=== PATIENT | male | born 1950 | race Caucasian/White ===

== ENCOUNTER 2017-03-04 09:24 | Day surgery (SDC) | payer MEDICARE, BC ==
[2017-03-04] MEDS ORDERED: Lactated Ringers 1,000 ML IV SCH (09:30)
[2017-03-04] MEDS ORDERED: fentaNYL 100 MCG/2 ML SDV ONE (10:12)
[2017-03-04] MEDS ORDERED: Midazolam 1 MG/ML 2 ML SDV ONE (10:12)
[2017-03-04] MEDS ORDERED: Propofol 200 MG/20 ML SDV ONE (10:12)
[2017-03-04] MEDS ORDERED: Ampicillin 2 GM in Sodium Chloride 0.9% 100 ML IV ONE (10:45)
--- NOTE | 2017-03-04 13:10 | OR ---
DATE OF PROCEDURE: 03/04/2017 PREOPERATIVE DIAGNOSIS: History of colon polyps. POSTOPERATIVE DIAGNOSES: 1. Small colon polyp, 15 cm from the anal verge. 2. History of colon polyps. PROCEDURE PERFORMED: Colonoscopy to the cecum with biopsy resection of small colon polyp, 15 cm from the anal verge. SURGEON: Jimmy Boyle MD ANESTHESIA: IV anesthesia with monitored anesthesia care. INDICATIONS: This 66-year-old white male is referred for a colonoscopy because of a history of adenomatous colon polyps. He says his last colonoscopic exam was done in 2011. I counseled him for the procedure, including risks and alternatives, and he gave his informed consent to proceed. DESCRIPTION OF PROCEDURE: The patient was placed in the left lateral decubitus position. IV anesthesia was administered by the Anesthesia Service. Time-out was held. A rectal exam was performed, which showed no masses. The flexible video Olympus colonoscope was introduced through his anus, up his rectum, and out his colon all the way to the cecum. Once the cecum was reached, the scope was slowly withdrawn, examining the mucosa throughout. No mucosal abnormalities were noted until we reached 15 cm from the anal verge. Here, we saw a small polyp, which was removed with a few bites of the biopsy forceps. The scope was brought back into the rectum, where it was retroflexed. The distal rectum appeared unremarkable. The scope was straightened and removed. He tolerated the procedure well. Jimmy Boyle MD /[id number] MTDD
[2017-03-04 13:16] VITALS: BP 136/71
== END 2017-03-04 13:20 | disposition home or self-care (01) ==
LOC: JP.SDS 09:24
PROVIDERS: ATTEND Surgery
DX: Z12.11 Encounter for screening for malignant neoplasm of colon (principal); D12.6 Benign neoplasm of colon, unspecified; I10 Essential (primary) hypertension; I25.10 Atherosclerotic heart disease of native coronary artery without angina pectoris; G47.33 Obstructive sleep apnea (adult) (pediatric); E66.9 Obesity, unspecified; Z86.010 Personal history of colon polyps; Z95.5 Presence of coronary angioplasty implant and graft; Z88.8 Allergy status to other drugs, medicaments and biological substances
CPT/HCPCS: 45380; 88305; J0290; J2250; J2704; J3010; J7030; J7120

== ENCOUNTER 2017-04-20 07:02 | Day surgery (SDC) | payer MEDICARE, BC ==
[2017-04-20] MEDS ORDERED: fentaNYL 250 MCG/5 ML SDV ONE (07:16)
[2017-04-20] MEDS ORDERED: Rocuronium 50 MG/5 ML Vial ONE (07:17)
[2017-04-20] MEDS ORDERED: Dexamethasone 4 MG/ML SDV ONE (07:17)
[2017-04-20] MEDS ORDERED: Neostigmine Methylsulfate 1 MG/ML 5 ML Syringe ONE (07:17)
[2017-04-20] MEDS ORDERED: Propofol 200 MG/20 ML SDV ONE (07:17)
[2017-04-20] MEDS ORDERED: Succinylcholine/Normal Saline 200 MG/10 ML Syringe ONE (07:17)
[2017-04-20] MEDS ORDERED: Ondansetron 4 MG/2 ML SDV ONE (07:17)
[2017-04-20] MEDS ORDERED: Acetaminophen 500 MG Tab PO ONE (07:30)
[2017-04-20] MEDS: Dextrose 5%-Lactated Ringers 1,000 ML IV SCH ×3 (07:42→23:36)
[2017-04-20] MEDS ORDERED: HYDROmorphone/Normal Saline 15 MG/30 ML PCA IV PRN (07:54)
[2017-04-20] MEDS ORDERED: Naloxone 0.4 MG/ML SDV IV PRN (08:01)
[2017-04-20] MEDS: Bupivacaine 0.5%/EPINEPHrine 1:200,000 50 ML MDV ONE ×3 (08:19→10:20)
[2017-04-20] MEDS ORDERED: Ropivacaine 52 ML, Dexamethasone 8 MG, EPINEPHrine 0.4 MG, Sodium Chloride 0.9% 25.6 ML NERVRT SCH ×4 (09:00)
[2017-04-20] MEDS ORDERED: Ketamine 500 MG/5 ML MDV IV SCH (09:00)
[2017-04-20] MEDS: cefOXitin 2 GM in Sodium Chloride 0.9% 50 ML IV ONE ×2 (09:17→14:56)
[2017-04-20] MEDS ORDERED: hydrOXYzine HCl 100 MG/2 ML SDV IM ONE (10:35)
[2017-04-20] MEDS ORDERED: Nitroglycerin 0.4 MG Tab.SL SL PRN (12:05)
[2017-04-20] MEDS ORDERED: Acetaminophen/HYDROcodone 325-5 MG Tab PO PRN (13:00)
[2017-04-20] MEDS ORDERED: Ondansetron 4 MG/2 ML SDV IVPUSH PRN (13:00)
[2017-04-20] MEDS ORDERED: amLODIPine 5 MG Tab PO SCH ×2 (14:00→21:00)
[2017-04-20] MEDS ORDERED: Pantoprazole 40 MG Vial IVPUSH SCH (14:00)
[2017-04-20] MEDS: cefOXitin 2 GM in Sodium Chloride 0.9% 50 ML IV SCH ×2 (16:49→22:17)
[2017-04-20] MEDS ORDERED: Losartan 50 MG Tab PO SCH (21:00)
[2017-04-20] MEDS ORDERED: Benzocaine/Cetylpyridinium/Menthol Lozenge MUCMEM PRN (21:39)
[2017-04-20] MEDS: Metoprolol Tartrate 50 MG Tab PO SCH (22:16)
[2017-04-20] MEDS: Acetaminophen 325 MG Tab PO PRN (22:38)
[2017-04-21] MEDS: cefOXitin 2 GM in Sodium Chloride 0.9% 50 ML IV SCH ×2 (04:34→10:36)
[2017-04-21 07:04] VITALS: BP 128/66
--- NOTE | 2017-04-21 08:24 | PCM.SURGPN ---
- General Info Date of Service: 04/21/17 Date of Surgery/Procedure: 04/20/17 POD#: 1 Post-Op Diagnosis: S/P cholecystectomy, awaiting pathology Admission Diagnosis/Problem: Chronic cholecystitis due to cholelithiasis with choledocholithiasis Functional Status: Reports: Pain Controlled, Tolerating Diet, Ambulating, Urinating Pain Score: 0 ("I am amazing, I have no pain") - Review of Systems General: Reports: No Symptoms HEENT: Reports: No Symptoms Pulmonary: Reports: No Symptoms Cardiovascular: Reports: No Symptoms Gastrointestinal: Reports: No Symptoms Genitourinary: Reports: No Symptoms Musculoskeletal: Reports: No Symptoms Skin: Reports: No Symptoms Neurological: Reports: No Symptoms Psychiatric: Reports: No Symptoms - Patient Data Vitals - Most Recent: Last Vital Signs Temp 36.8 C 04/21/17 07:02 Pulse 80 04/21/17 07:02 Resp 16 04/21/17 07:02 BP 128/66 04/21/17 07:02 Pulse Ox 97 04/21/17 07:02 Weight - Most Recent: 104.78 kg I&O - Last 24 Hours: Intake & Output 04/20/17 04/21/17 04/21/17 22:59 06:59 14:59 Intake Total 990 954 Output Total 910 520 400 Balance 80 434 -400 Lab Results Last 24 Hrs: Laboratory Results - last 24 hr 04/20/17 04/21/17 04/21/17 Range/Units 07:30 04:21 04:21 WBC 10.7 (4.5-11.0) K/uL RBC 4.55 (4.30-5.90) M/uL Hgb 14.6 (12.0-15.0) g/dL Hct 43.9 (40.0-54.0) % MCV 97 (80-98) fL MCH 32 H (27-31) pg MCHC 33 (32-36) % Plt Count 261 (150-400) K/uL Sodium 142 (140-148) mmol/L Potassium 4.1 (3.6-5.2) mmol/L Chloride 107 (100-108) mmol/L Carbon Dioxide 26 (21-32) mmol/L Anion Gap 9.1 (5.0-14.0) mmol/L BUN 17 (7-18) mg/dL Creatinine 1.1 (0.8-1.3) mg/dL Est Cr Clr Drug Dosing 68.21 mL/min Estimated GFR (MDRD) > 60 (>60) Glucose 116 H (74-106) mg/dL Calcium 8.5 (8.5-10.1) mg/dL Phosphorus 3.4 (2.5-4.9) mg/dL Magnesium 2.0 (1.8-2.4) mg/dL Total Bilirubin 1.0 0.6 (0.2-1.0) mg/dL AST 33 (15-37) U/L ALT 42 (12-78) U/L Alkaline Phosphatase 117 H 99 (46-116) U/L NT-Pro-B Natriuret Pep 79 (5-125) pg/mL Total Protein 6.5 (6.4-8.2) g/dL Albumin 3.7 (3.4-5.0) g/dL Globulin 2.8 (2.3-3.5) g/dL Albumin/Globulin Ratio 1.3 (1.2-2.2) Caio Results Last 24 Hrs: Microbiology 04/20/17 10:20 Gram Stain - Final Gallbladder Wound Culture - Preliminary NO GROWTH AFTER 1 DAY Med Orders - Current: Current Medications Acetaminophen (Tylenol) 650 mg PO Q4H PRN PRN Reason: Pain Last Admin: 04/20/17 22:38 Dose: 650 mg Hydrocodone Bitart/Acetaminophen ([place] 325-5 Mg) 1 - 2 tab PO Q4H PRN PRN Reason: PAIN Amlodipine Besylate (Norvasc) 5 mg PO BEDTIME [facility] Last Admin: 04/20/17 22:16 Dose: 5 mg Aspirin (Halfprin) 81 mg PO DAILY [facility] Benzocaine/Menthol (Cepacol Sore Throat) 1 lozenge MUCMEM ASDIRECTED PRN PRN Reason: Sore Throat Last Admin: 04/20/17 22:16 Dose: 1 otoniel Clopidogrel Bisulfate (Plavix) 75 mg PO DAILY [facility] Hydromorphone HCl (Dilaudid Logistics Solution Manager 15 Mg In Ns 30 Ml) 0 mg IV ASDIRECTED PRN; Protocol PRN Reason: Pain Dextrose/Lactated Ringer's (Dextrose 5%-Lactated Ringers) 1,000 mls @ 100 mls/ hr IV ASDIRECTED [facility] Last Admin: 04/20/17 23:36 Dose: 100 mls/hr Cefoxitin Sodium 2 gm/ Sodium (Chloride) 50 mls @ 100 mls/hr IV Q6H [facility] Last Admin: 04/21/17 04:34 Dose: 100 mls/hr Isosorbide Mononitrate (Imdur) 30 mg PO DAILY [facility] Losartan Potassium (Cozaar) 50 mg PO DAILY [facility] Metoprolol Tartrate (Lopressor) 100 mg PO BID [facility] Last Admin: 04/20/17 22:16 Dose: 100 mg Naloxone HCl (Narcan) 0.1 mg IV ASDIRECTED PRN PRN Reason: decreased respiratory rate Nitroglycerin (Nitrostat) 0.4 mg SL ASDIRECTED PRN PRN Reason: CHEST PAIN Ondansetron HCl (Zofran) 4 mg IVPUSH Q4H PRN PRN Reason: Nausea/Vomiting Pantoprazole Sodium (Protonix Iv) 40 mg IVPUSH Q24H [facility] Last Admin: 04/20/17 14:16 Dose: 40 mg Discontinued Medications Acetaminophen (Tylenol Extra Strength) 1,000 mg PO ONETIME ONE Stop: 04/20/17 07:31 Last Admin: 04/20/17 07:23 Dose: 1,000 mg Bupivacaine HCl/Epinephrine Bitart (Marcaine 0.5%/Epinephrine 1:200,000) Confirm Administered Dose 50 ml .ROUTE .STK-MED ONE Stop: 04/20/17 08:05 Last Admin: 04/20/17 10:20 Dose: 15 ml Ropivacaine 52 ml/Dexamethasone 8 mg/Epinephrine HCl 0.4 mg/ Sodium Chloride 25.6 ml 0 ml NERVRT ASDIRECTED [facility] Last Admin: 04/20/17 09:48 Dose: 80 syringe Dexamethasone (Dexamethasone) Confirm Administered Dose 4 mg .ROUTE .STK-MED ONE Stop: 04/20/17 07:18 Fentanyl (Sublimaze) Confirm Administered Dose 250 mcg .ROUTE .STK-MED ONE Stop: 04/20/17 07:17 Glycopyrrolate () Confirm Administered Dose 1 mg .ROUTE .STK-MED ONE Stop: 04/20/17 07:18 Hydroxyzine HCl (Vistaril) 100 mg IM ONETIME ONE Stop: 04/20/17 10:36 Last Admin: 04/20/17 10:44 Dose: 100 mg Cefoxitin Sodium 2 gm/ Sodium (Chloride) 50 mls @ 100 mls/hr IV ONETIME ONE Stop: 04/20/17 09:14 Last Admin: 04/20/17 14:56 Dose: Not Given Ketamine HCl (Ketalar) 36 mg IV ASDIRECTED [facility] Losartan Potassium (Cozaar) 50 mg PO BID [facility] Neostigmine Methylsulfate (Neostigmine) Confirm Administered Dose 5 mg .ROUTE .STK-MED ONE Stop: 04/20/17 07:18 Ondansetron HCl (Zofran) Confirm Administered Dose 4 mg .ROUTE .STK-MED ONE Stop: 04/20/17 07:18 Propofol (Diprivan 20 Ml) Confirm Administered Dose 200 mg .ROUTE .STK-MED ONE Stop: 04/20/17 07:18 Rocuronium [place] (Zemuron) Confirm Administered Dose 50 mg .ROUTE .STK-MED ONE Stop: 04/20/17 07:18 Succinylcholine Chloride (Succinylcholine In Ns Pf) Confirm Administered Dose 200 mg .ROUTE .STK-MED ONE Stop: 04/20/17 07:18 - Exam Wound/Incisions: Healing Well General: Alert, Oriented, Cooperative, No Acute Distress Lungs: Clear to Auscultation, Normal Respiratory Effort Cardiovascular: Regular Rate, Regular Rhythm GI/Abdominal Exam: Normal Bowel Sounds, Soft, Non-Tender, No Organomegaly, No Distention, No Abnormal Bruit Extremities: Non-Tender, No Pedal Edema Skin: Warm, Dry, Intact Neurological: No New Focal Deficit Psy/Mental Status: Alert, Normal Affect, Normal Mood - Problem List Review Problem List Initiated/Reviewed/Updated: Yes - My Orders Last 24 Hours: Active Orders 24 hr Category Date Time Status Admission Status [Patient Status] [ADT] Routine ADT 04/20/17 10:30 Active Ambulate [RC] QID Care 04/20/17 11:26 Active Communication Order [RC] ROUTINE Care 04/20/17 11:34 Active Drain Management [RC] ASDIRECTED Care 04/20/17 11:33 Active Incentive Breathing [RT Incentive Spirometry] [RC] Care 04/20/17 11:31 Active Q1HWA Intake and Output [RC] QSHIFT Care 04/20/17 11:32 Active Ready for Discharge [RC] PER UNIT ROUTINE Care 04/21/17 07:48 Active Turn, Cough, Deep Breathe [RC] Q1HWA Care 04/20/17 11:30 Active Up to Chair [RC] QID Care 04/20/17 11:26 Active Vital Signs [RC] Q4H Care 04/20/17 11:25 Active Advance Diet Instructions [DIET] Diet 04/20/17 Lunch Active CULTURE ANAEROBIC [RM] Routine Lab 04/20/17 10:20 Results CULTURE WOUND + SMEAR [RM] Routine Lab 04/20/17 10:20 Results Acetaminophen [Tylenol] Med 04/20/17 22:27 Active 650 mg PO Q4H PRN Acetaminophen/HYDROcodone [[place] 325-5 MG] Med 04/20/17 13:00 Active 1 - 2 tab PO Q4H PRN Aspirin [Halfprin] Med 04/21/17 09:00 Active 81 mg PO DAILY Benzocaine/Cetylpyrd/Menthol [Cepacol Sore Throat] Med 04/20/17 21:39 Active 1 lozenge MUCMEM ASDIRECTED PRN Clopidogrel [Plavix] Med 04/21/17 09:00 Active 75 mg PO DAILY Dextrose 5%-Lactated Ringers 1,000 ml Med 04/20/17 07:45 Active IV ASDIRECTED HYDROmorphone/Normal Saline [Dilaudid FINISHER HAND 15 MG in NS Med 04/20/17 07:54 Active 30 ML] See Protocol IV ASDIRECTED PRN Isosorbide Mononitrate [Imdur] Med 04/21/17 09:00 Active 30 mg PO DAILY Losartan [Cozaar] Med 04/21/17 09:00 Active 50 mg PO DAILY Metoprolol Tartrate [Lopressor] Med 04/20/17 21:00 Active 100 mg PO BID Naloxone [Narcan] Med 04/20/17 08:01 Active 0.1 mg IV ASDIRECTED PRN Nitroglycerin [Nitrostat] Med 04/20/17 12:05 Active 0.4 mg SL ASDIRECTED PRN Ondansetron [Zofran] Med 04/20/17 13:00 Active 4 mg IVPUSH Q4H PRN Pantoprazole [ProTONIX IV] Med 04/20/17 14:00 Active 40 mg IVPUSH Q24H amLODIPine [Norvasc] Med 04/20/17 21:00 Active 5 mg PO BEDTIME cefOXitin [Mefoxin] 2 gm Med 04/20/17 16:00 Active Sodium Chloride 0.9% [Normal Saline] 50 ml IV Q6H Drain Removal [OM.PC] Routine Oth 04/21/17 07:44 Ordered SCD [Sequential Compression Device] [OM.PC] Routine Oth 04/20/17 11:34 Ordered Sequential Compression Device [OM.PC] Routine Oth 04/20/17 07:15 Ordered Medication Orders Acetaminophen (Tylenol) 650 mg PO Q4H PRN PRN Reason: Pain Last Admin: 04/20/17 22:38 Dose: 650 mg Hydrocodone Bitart/Acetaminophen ([place] 325-5 Mg) 1 - 2 tab PO Q4H PRN PRN Reason: PAIN Amlodipine Besylate (Norvasc) 5 mg PO BEDTIME [facility] Last Admin: 04/20/17 22:16 Dose: 5 mg Aspirin (Halfprin) 81 mg PO DAILY [facility] Benzocaine/Menthol (Cepacol Sore Throat) 1 lozenge MUCMEM ASDIRECTED PRN PRN Reason: Sore Throat Last Admin: 04/20/17 22:16 Dose: 1 otoniel Clopidogrel Bisulfate (Plavix) 75 mg PO DAILY [facility] Hydromorphone HCl (Dilaudid Logistics Solution Manager 15 Mg In Ns 30 Ml) 0 mg IV ASDIRECTED PRN; Protocol PRN Reason: Pain Dextrose/Lactated Ringer's (Dextrose 5%-Lactated Ringers) 1,000 mls @ 100 mls/ hr IV ASDIRECTED [facility] Last Admin: 04/20/17 23:36 Dose: 100 mls/hr Infusion: 04/20/17 22:59 Dose: 100 mls/hr Admin: 04/20/17 12:59 Dose: 100 mls/hr Infusion: 04/20/17 12:59 Dose: 100 mls/hr Admin: 04/20/17 07:42 Dose: 100 mls/hr Cefoxitin Sodium 2 gm/ Sodium (Chloride) 50 mls @ 100 mls/hr IV Q6H [facility] Last Admin: 04/21/17 04:34 Dose: 100 mls/hr Admin: 04/20/17 22:17 Dose: 100 mls/hr Admin: 04/20/17 16:49 Dose: 100 mls/hr Isosorbide Mononitrate (Imdur) 30 mg PO DAILY [facility] Losartan Potassium (Cozaar) 50 mg PO DAILY [facility] Metoprolol Tartrate (Lopressor) 100 mg PO BID [facility] Last Admin: 04/20/17 22:16 Dose: 100 mg Naloxone HCl (Narcan) 0.1 mg IV ASDIRECTED PRN PRN Reason: decreased respiratory rate Nitroglycerin (Nitrostat) 0.4 mg SL ASDIRECTED PRN PRN Reason: CHEST PAIN Ondansetron HCl (Zofran) 4 mg IVPUSH Q4H PRN PRN Reason: Nausea/Vomiting Pantoprazole Sodium (Protonix Iv) 40 mg IVPUSH Q24H [facility] Last Admin: 04/20/17 14:16 Dose: 40 mg - Plan Plan (Free Text/Narrative):: Raul Tena is a 66 year old male with a history chronic cholecystitis with cholelithiasis and calcified gallbladder who is now POD #1 after cholecystectomy. This morning the patient states that he is in no pain at all. He has no complaints and would like to go home. He is tolerating oral diet. He is not taking any pain medications. He is passing stool and had good urine output. He is afebrile and his other vitals are stable. Plan is to discharge to home. # S/P Cholecystetomy - RX for tylenol PRN for pain This chart was scribed for Dr. Ludwig by: Mani Rowland, MS3 PG #[phone]
[2017-04-21] MEDS: Metoprolol Tartrate 50 MG Tab PO SCH (08:38)
[2017-04-21] MEDS: Acetaminophen 325 MG Tab PO PRN (08:56)
[2017-04-21] MEDS ORDERED: Losartan 50 MG Tab PO SCH (09:00)
[2017-04-21] MEDS ORDERED: Clopidogrel 75 MG Tab PO SCH (09:00)
[2017-04-21] MEDS ORDERED: Aspirin 81 MG Tab.EC PO SCH (09:00)
[2017-04-21] MEDS ORDERED: Isosorbide Mononitrate 30 MG Tab.ER PO SCH (09:00)
--- NOTE | 2017-04-28 08:36 | OR ---
DATE OF PROCEDURE: 04/20/2017 PREOPERATIVE DIAGNOSIS: Chronic cholecystitis with calcified gallbladder. POSTOPERATIVE DIAGNOSES: 1. Chronic cholecystitis with calcified gallbladder. 2. Umbilical hernia. 3. Pericholecystic abscess. OPERATIVE PROCEDURE: Diagnostic laparoscopy with: 1. Cholecystectomy (37137). 2. Umbilical hernia repair (87005). 3. Drainage of pericholecystic abscess (40245). ANESTHESIA: General. [place] REPAIR TECHNICIAN: Shawna Shay PA-C and ARAVIND [employer]. INDICATION FOR PROCEDURE: A 66-year-old male presenting with some episodes of recurrent biliary colic. He has had recently at least 2 episodes of predominence of biliary colic. Workup has included a CT scan, which showed a calcified gallbladder, along with some stones or sludge within the gallbladder. Given the presence of the calcified gallbladder, which is at a significant risk for harboring a gallbladder carcinoma, the plan is to proceed with a cholecystectomy. Potential risks including bleeding, infection, injury to underlying viscera, possible migration of stones in the common bile duct, requiring additional procedures for correction, as well as possibility that additional liver resection might be required, if malignancy is identified on final pathologic review of the gallbladder, were all gone over, along with the remote possibility of cardiopulmonary, septic, or hemorrhagic complications leading to , and he wishes to proceed. DETAILS OF PROCEDURE: The patient was taken to the operating room, and after general endotracheal anesthesia was induced, the abdomen was prepped and draped. A transverse epigastric incision was made. The peritoneal cavity entered under direct vision with an Optiview trocar and inflated to 15 mmHg pressure with CO2. Laparoscope was then reinserted. No underlying trocar insertion site injuries were seen. Following this, a 12 mm subumbilical trocar was placed, and upon peering down in this area, the patient was noted to have an umbilical hernia, and the trocar was intentionally placed through the center of that hernia to facilitate its subsequent repair. A single 5-mm right abdominal trocar was then also placed. The upper abdomen was examined. The patient was noted to have a thick-walled gallbladder with considerable edema as expected. This was retracted anteriorly and laterally. As one pulled the gallbladder anteriorly, an area of purulence posterior to the gallbladder was identified. This pericholecystic abscess was then drained and cultures obtained. At this point, the dissection continued around the gallbladder neck with Harmonic scalpel, down around the gallbladder neck/cystic duct junction. Once this area, along with the adjacent cystic artery, were both well identified, both structures were clipped 3 times proximally and once distally and divided. The gallbladder was then dissected off the gallbladder bed using Harmonic scalpel. The gallbladder, given the risk of carcinoma harbored within it, was then placed into a specimen bag, and the latter was then brought out through the epigastric trocar site without direct contamination of the gallbladder and its contents to the abdominal wall. The area of dissection was inspected. No bleeding or bile leaks were seen. A Jabari-Cowan drain was taken out through the right lateral trocar site and placed into the area of the gallbladder bed, and at that point, the camera was brought up to the epigastric site. The umbilical hernia was then closed with a series of 0 Vicryl sutures. These were initially placed with a transverse closure orientation, and after being placed, the remaining trocars were removed. The fascia at the epigastric site was closed with 0 Vicryl stitch, and upon decompression of the abdomen, the umbilical hernia repair sutures were tied, and the incisions were each closed with 4-0 Vicryl skin stitch. Dressing applied and the patient was taken to the recovery room in satisfactory condition. One additional adjunct used in this procedure was bilateral subcostal transversus abdominis plane blocks, and these were placed bilaterally with the confirmation of the adequate location of the needle tip visually from within and the standard solution being injected. Physician kitchen assistant, Shawna Shay, played an essential role in assisting in this case, helping to position the patient, retract structures as needed, as well as suturing and cutting sutures when indicated. Her presence improved the patient safety and decreased the operative time. Grayson Ludwig MD /[id number]
== END 2017-04-21 10:00 | disposition home or self-care (01) ==
LOC: JP.SDS 07:02 → JP.MS 10:30 → JP.SDS 04-21 10:00
PROVIDERS: ATTEND Surgery
DX: K81.1 Chronic cholecystitis (principal); K42.9 Umbilical hernia without obstruction or gangrene; E78.00 Pure hypercholesterolemia, unspecified; I25.10 Atherosclerotic heart disease of native coronary artery without angina pectoris; G47.33 Obstructive sleep apnea (adult) (pediatric); I10 Essential (primary) hypertension; M15.3 Secondary multiple arthritis; E66.9 Obesity, unspecified; N52.9 Male erectile dysfunction, unspecified; Z95.0 Presence of cardiac pacemaker; Z98.890 Other specified postprocedural states; Z99.89 Dependence on other enabling machines and devices; Z79.899 Other long term (current) drug therapy; Z79.02 Long term (current) use of antithrombotics/antiplatelets; Z79.82 Long term (current) use of aspirin; Z87.442 Personal history of urinary calculi; Z88.8 Allergy status to other drugs, medicaments and biological substances
CPT/HCPCS: 36415; 47562; 80053; 82247; 83735; 83880; 84075; 84100; 85027; 87070; 87075; 87205; 88304; A9270; C9113; J0171; J0694; J1100; J2405; J2704; J2795; J3010; J3410; J7042; J7050

== ENCOUNTER 2017-05-18 16:41 | Emergency (ER) | payer MEDICARE, BC ==
[2017-05-18] MEDS ORDERED: Sodium Chloride 0.9% 10 ML Syringe FLUSH PRN ×2 (17:31)
[2017-05-18] MEDS ORDERED: fentaNYL 100 MCG/2 ML SDV IVPUSH ONE (17:32)
[2017-05-18] MEDS ORDERED: Ondansetron 4 MG/2 ML SDV IVPUSH ONE (17:32)
--- NOTE | 2017-05-18 17:37 | EDM.PDOC ---
<OfficerElmer - Last Filed: 05/18/17 17:34> ED HPI GENERAL MEDICAL PROBLEM - General Chief Complaint: Abdominal Pain Stated Complaint: ABD PAIN Time Seen by Provider: 05/18/17 17:23 Source of Information: Reports: Patient, Family, RN Notes Reviewed History Limitations: Reports: No Limitations - History of Present Illness INITIAL COMMENTS - FREE TEXT/NARRATIVE: 66-year-old gentleman presents emergency department today with complaint of abdominal pain, he states the pain has progressively gotten worse over the last 2-3 days. He recently had his gallbladder removed about 6 weeks prior his surgical wounds have healed well he did have a left kidney stone with stenting process done about 2 weeks ago and has removed the splint himself on Thursday. After removal is states he developed some spasms which have subsided but the abdominal pain also started at that time as well denies any fevers does have nausea no shortness of breath chest pain Right Upper Abdominal Pain Score (Numeric/FACES): 7 - Related Data Allergies Allergy/AdvReac Type Severity Reaction Status Date / Time meperidine HCl [From Demerol] Allergy Unknown Hypertensio Verified 05/18/17 17: 03 n hydroxychloroquine sulfate AdvReac Confusion Verified 05/18/17 17:03 [From Plaquenil] lisinopril AdvReac Cough Verified 05/18/17 17:03 Home Meds: Home Meds Aspirin [Adult Low Dose Aspirin EC] 81 mg PO DAILY 03/22/13 [History] Isosorbide Mononitrate [Imdur] 30 mg PO DAILY 03/22/13 [History] Multivitamin [Daily Multiple Vitamin] 1 tab PO DAILY 03/22/13 [History] Losartan [Cozaar] 100 mg PO DAILY 03/24/13 [History] Clopidogrel [Plavix] 75 mg PO DAILY 05/23/14 [History] Nitroglycerin [Nitrostat] 0.4 mg SL ASDIRECTED PRN 05/23/14 [History] atorvaSTATin [Lipitor] 40 mg PO BEDTIME 11/20/16 [History] Metoprolol Tartrate [Lopressor] 100 mg PO BID 03/04/17 [History] amLODIPine Besylate [Norvasc] 5 mg PO BEDTIME 03/04/17 [History] Amoxicillin 2,000 mg PO ASDIRECTED 05/18/17 [History] Ciprofloxacin HCl [Cipro] 500 mg PO BID 05/18/17 [History] Oxybutynin [Oxybutynin ER] 1 tab PO DAILY 05/18/17 [History] Sennosides/Docusate Sodium [Sennosides-Docusate Sodium] 1 each PO ASDIRECTED [History] Tamsulosin HCl [Flomax] 0.4 mg PO DAILY 05/18/17 [History] oxyCODONE 1 tab PO ASDIRECTED 05/18/17 [History] Past Medical History HEENT History: Reports: Other (See Below) Other HEENT History: skesis Cardiovascular History: Reports: CAD, Heart Murmur, High Cholesterol, Stents Respiratory History: Reports: Intubation, Previous, Pneumonia, Recurrent, Sleep Apnea Gastrointestinal History: Reports: Cholelithiasis, Colon Polyp Genitourinary History: Reports: Renal Calculus Other Genitourinary History: LITHROTRIPSY Musculoskeletal History: Reports: Arthritis, Fracture, Other (See Below) Other Musculoskeletal History: R hip pain Endocrine/Metabolic History: Reports: Obesity/BMI 30+ Hematologic History: Reports: Blood Transfusion(s) - Infectious Disease History Infectious Disease History: Reports: Other (See Below) Other Infectious Disease History: R HIP STAFF INFECTION 2006 - Past Surgical History HEENT Surgical History: Reports: Cataract Surgery Cardiovascular Surgical History: Reports: Coronary Artery Stent Respiratory Surgical History: Reports: None GI Surgical History: Reports: Colonoscopy, Polypectomy Male Surgical History: Reports: Lithotripsy (ESWL), Vasectomy Endocrine Surgical History: Reports: None Musculoskeletal Surgical History: Reports: Arthroscopic Procedure, Hip Replacement, Shoulder Surgery, Other (See Below) Other Musculoskeletal Surgeries/Procedures:: finger surgery Social & Family History - Family History Family Medical History: Noncontributory Cardiac: Reports: Heart Failure, Heart Valve Replacement, [place] Musculoskeletal: Reports: Arthritis Endocrine/Metabolic: Reports: Diabetes, type II, Hypothyroidism - Tobacco Use Smoking Status *Q: Unknown Ever Smoked - Caffeine Use Caffeine Use: Reports: Coffee - Alcohol Use Days Per Week of Alcohol Use: 0 - Recreational Drug Use Recreational Drug Use: No ED ROS GENERAL - Review of Systems Review Of Systems: See Below Constitutional: Reports: No Symptoms HEENT: Reports: No Symptoms Respiratory: Reports: No Symptoms Cardiovascular: Reports: No Symptoms GI/Abdominal: Reports: Abdominal Pain, Flatus, Nausea. Denies: Constipation, Diarrhea, Vomiting : Reports: No Symptoms Musculoskeletal: Reports: No Symptoms Skin: Reports: No Symptoms Neurological: Reports: No Symptoms ED EXAM, GI/ABD - Physical Exam Exam: See Below Text/Narrative:: General: Male, not in any distress, alert and oriented x3 HEENT: head is atraumatic normocephalic, eyes pupils equal round reactive to light, sclera clear no conjunctivitis appreciated. Ears tympanic membranes clear and gill landmarks and light reflex are present bilaterally canals are clear. Nose no septal deviation, nares are clear, no blood present. Mouth mucosa is moist and pink no erythema or exudate noted in soft palate, tongue is midline uvula is midline, dentition is intact. Neck: Supple no thyromegaly no tracheal deviation. Nodes: Cervical nodes subclavicular nodes nontender no palpable lymphadenopathy noted. Lungs: clear to auscultation bilaterally with symmetrical respirations, no adventitious noise appreciated. CV: Regular rate and rhythm S1 and S2 appreciated no murmurs rubs or gallops noted. Abdomen: Soft, tender epigastric region, no palpable masses or organomegaly appreciated, no distention no guarding bowel sounds are present, [ Neuro: Cranial nerves II through XII grossly intact Skin: Warm and dry, intact Extremities: No lower extremity edema appreciated, Course - Vital Signs Last Recorded V/S: Last Vital Signs Temp 35.1 C L 05/18/17 17:02 Pulse 63 05/18/17 18:52 Resp 12 05/18/17 18:52 BP 135/74 05/18/17 18:52 Pulse Ox 94 L 05/18/17 18:52 - Orders/Labs/Meds Orders: Active Orders 24 hr Category Date Time Status Peripheral IV Care [RC] . DIRECTED Care 05/18/17 17:32 Active Sodium Chloride 0.9% [Saline Flush] Med 05/18/17 17:31 Active 10 ml FLUSH ASDIRECTED PRN Sodium Chloride 0.9% [Saline Flush] Med 05/18/17 17:31 Active 10 ml FLUSH ASDIRECTED PRN Peripheral IV Insertion Adult [OM.PC] Urgent Oth 05/18/17 17:31 Ordered Medication Orders Sodium Chloride (Saline Flush) 10 ml FLUSH ASDIRECTED PRN PRN Reason: Keep Vein Open Last Admin: 05/18/17 17:47 Dose: 10 ml Sodium Chloride (Saline Flush) 10 ml FLUSH ASDIRECTED PRN PRN Reason: Keep Vein Open Labs: Laboratory Tests 05/18/17 05/18/17 05/18/17 Range/Units 17:04 17:43 17:43 WBC 5.6 (4.5-11.0) K/uL RBC 4.84 (4.30-5.90) M/uL Hgb 15.7 H (12.0-15.0) g/dL Hct 45.6 (40.0-54.0) % MCV 94 (80-98) fL MCH 32 H (27-31) pg MCHC 34 (32-36) % Plt Count 262 (150-400) K/uL Neut % (Auto) 67 H (36-66) % Lymph % (Auto) 18 L (24-44) % [place] % (Auto) 12 H (2-6) % Eos % (Auto) 3 (2-4) % Baso % (Auto) 1 (0-1) % Sodium 143 (140-148) mmol/L Potassium 4.0 (3.6-5.2) mmol/L Chloride 107 (100-108) mmol/L Carbon Dioxide 27 (21-32) mmol/L Anion Gap 8.8 (5.0-14.0) mmol/L BUN 15 (7-18) mg/dL Creatinine 1.0 (0.8-1.3) mg/dL Est Cr Clr Drug Dosing 75.03 mL/min Estimated GFR (MDRD) > 60 (>60) Glucose 124 H (74-106) mg/dL Lactic Acid (0.4-2.0) mmol/L Calcium 8.8 (8.5-10.1) mg/dL Total Bilirubin 3.7 H D (0.2-1.0) mg/dL AST 515 H D (15-37) U/L ALT 615 H (12-78) U/L Alkaline Phosphatase 264 H D (46-116) U/L Troponin I < 0.017 (0.000-0.056) ng/mL Total Protein 6.8 (6.4-8.2) g/dL Albumin 3.7 (3.4-5.0) g/dL Globulin 3.1 (2.3-3.5) g/dL Albumin/Globulin Ratio 1.2 (1.2-2.2) Lipase 100 (73-393) U/L Urine Color Brown Urine Appearance Cloudy Urine pH 5.0 (4.5-8.0) Ur Specific [place] 1.025 (1.008-1.030) Urine Protein 100 H (NEGATIVE) mg/dL Urine Glucose (UA) Normal (NEGATIVE) mg/dL Urine Ketones Negative (NEGATIVE) mg/dL Urine Occult Blood Large (NEGATIVE) Urine Nitrite Negative (NEGAITVE) Urine Bilirubin Small (NEGATIVE) Urine Urobilinogen 1 (NORMAL) mg/dL Ur Leukocyte Esterase Negative (NEGATIVE) Urine RBC Packed H (0-5) Urine WBC Not seen (0-5) Ur Epithelial Cells Not seen Amorphous Sediment Not seen Urine Bacteria Few Urine Mucus Not seen 05/18/17 Range/Units 17:43 WBC (4.5-11.0) K/uL RBC (4.30-5.90) M/uL Hgb (12.0-15.0) g/dL Hct (40.0-54.0) % MCV (80-98) fL MCH (27-31) pg MCHC (32-36) % Plt Count (150-400) K/uL Neut % (Auto) (36-66) % Lymph % (Auto) (24-44) % [place] % (Auto) (2-6) % Eos % (Auto) (2-4) % Baso % (Auto) (0-1) % Sodium (140-148) mmol/L Potassium (3.6-5.2) mmol/L Chloride (100-108) mmol/L Carbon Dioxide (21-32) mmol/L Anion Gap (5.0-14.0) mmol/L BUN (7-18) mg/dL Creatinine (0.8-1.3) mg/dL Est Cr Clr Drug Dosing mL/min Estimated GFR (MDRD) (>60) Glucose (74-106) mg/dL Lactic Acid 1.5 (0.4-2.0) mmol/L Calcium (8.5-10.1) mg/dL Total Bilirubin (0.2-1.0) mg/dL AST (15-37) U/L ALT (12-78) U/L Alkaline Phosphatase (46-116) U/L Troponin I (0.000-0.056) ng/mL Total Protein (6.4-8.2) g/dL Albumin (3.4-5.0) g/dL Globulin (2.3-3.5) g/dL Albumin/Globulin Ratio (1.2-2.2) Lipase (73-393) U/L Urine Color Urine Appearance Urine pH (4.5-8.0) Ur Specific [place] (1.008-1.030) Urine Protein (NEGATIVE) mg/dL Urine Glucose (UA) (NEGATIVE) mg/dL Urine Ketones (NEGATIVE) mg/dL Urine Occult Blood (NEGATIVE) Urine Nitrite (NEGAITVE) Urine Bilirubin (NEGATIVE) Urine Urobilinogen (NORMAL) mg/dL Ur Leukocyte Esterase (NEGATIVE) Urine RBC (0-5) Urine WBC (0-5) Ur Epithelial Cells Amorphous Sediment Urine Bacteria Urine Mucus Meds: Medications Generic Name Dose Route Start Last Admin Trade Name Freq PRN Reason Stop Dose Admin Sodium Chloride 10 ml 05/18/17 17:31 05/18/17 17:47 Saline Flush FLUSH 10 ml ASDIRECTED PRN Administration Keep Vein Open Sodium Chloride 10 ml 05/18/17 17:31 Saline Flush FLUSH ASDIRECTED PRN Keep Vein Open Discontinued Medications Generic Name Dose Route Start Last Admin Trade Name Freq PRN Reason Stop Dose Admin Fentanyl 50 mcg 05/18/17 17:32 05/18/17 17:47 Sublimaze IVPUSH 05/18/17 17:33 50 mcg ONETIME ONE Administration Ondansetron HCl 4 mg 05/18/17 17:32 05/18/17 17:48 Zofran IVPUSH 05/18/17 17:33 4 mg ONETIME ONE Administration Departure - Departure Disposition: DC/Tfer to [facility] 02 Clinical Impression: Elevated LFTs Calculus in biliary tract Qualifiers: Cholelithiasis location: other site Biliary obstruction: with biliary obstruction Qualified Code(s): K80.81 - Other cholelithiasis with obstruction - Discharge Information Referrals: Woodrow Lyn MD [Primary Care Provider] - Forms: ED Department Discharge <Genaro Patrick G - Last Filed: 05/18/17 19:18> Course - Vital Signs Text/Narrative:: Accepted in transfer at 1900h by Dr. Gustafson, hospitalist at [facility]. Departure - Departure Time of Disposition: 19:20 Condition: Fair
[2017-05-18 18:53] VITALS: BP 135/74
== END 2017-05-18 19:41 ==
LOC: JP.ED 16:41
DX: K80.81 Other cholelithiasis with obstruction (principal); R74.8 Abnormal levels of other serum enzymes; I25.10 Atherosclerotic heart disease of native coronary artery without angina pectoris; E78.00 Pure hypercholesterolemia, unspecified; Z88.5 Allergy status to narcotic agent; Z88.8 Allergy status to other drugs, medicaments and biological substances; Z79.82 Long term (current) use of aspirin; Z79.899 Other long term (current) drug therapy
CPT/HCPCS: 36415; 80053; 81001; 83605; 83690; 84484; 85025; 96374; 96375; 99285; J2405; J3010; J7050

== ENCOUNTER 2018-05-27 23:46 | Emergency (ER) | payer MEDICARE, BC ==
[2018-05-27] MEDS ORDERED: Aspirin 81 MG Tab.Chew PO ONE (23:58)
[2018-05-27] MEDS ORDERED: Sodium Chloride 0.9% 10 ML Syringe FLUSH PRN (23:58)
[2018-05-28] MEDS ORDERED: Ondansetron 4 MG Tab.DIS PO ONE (00:02)
[2018-05-28] MEDS: Nitroglycerin 0.4 MG Tab.SL SL PRN ×2 (00:02→00:17)
[2018-05-28] MEDS ORDERED: Nitroglycerin 0.4 MG Tab.SL ONE (00:02)
[2018-05-28] MEDS ORDERED: Heparin Sodium 5,000 Units/ML Vial IVPUSH ONE (00:03)
[2018-05-28] MEDS ORDERED: Ondansetron 4 MG Tab.DIS ONE (00:05)
--- NOTE | 2018-05-28 00:08 | EDM.PDOC ---
ED HPI GENERAL MEDICAL PROBLEM - General Chief Complaint: Chest Pain Stated Complaint: CHEST PAINS Time Seen by Provider: 05/28/18 00:00 Source of Information: Reports: Patient, Old Records History Limitations: Reports: No Limitations - History of Present Illness INITIAL COMMENTS - FREE TEXT/NARRATIVE: 67 yo male presents with progressive chest pain over the past 3 hrs. Initially thought it was heart burn. Has NTG but couldn't find it. Has 4 stents placed at [facility]. These stents were placed at 3 different times starting from 10 yrs ago until the last about 4 yrs ago. Has increased dyspnea with exertion tonight. Mild nausea. Had been off his Plavix for a back injection, took his first single 75 mg dose today after having been off it. Onset: Gradual Onset Date: 05/27/18 Onset Time: 21:00 Duration: Hour(s): (3), Getting Worse Location: Reports: Chest Quality: Reports: Pressure Severity: Moderate Improves with: Reports: None Worsens with: Reports: Other (exertion) Context: Reports: Other (see HPI) Associated Symptoms: Reports: Chest Pain, Nausea/Vomiting (no vomiting), Shortness of Breath. Denies: Fever/Chills Treatments [employer] [employer]: Reports: Other (see below) (ASA 81 mg po) - Related Data Allergies Allergy/AdvReac Type Severity Reaction Status Date / Time meperidine HCl [From Demerol] Allergy Unknown Hypertensio Verified 05/27/18 23: 57 n hydroxychloroquine sulfate AdvReac Confusion Verified 05/27/18 23:57 [From Plaquenil] lisinopril AdvReac Cough Verified 05/27/18 23:57 Home Meds: Home Meds Aspirin [Adult Low Dose Aspirin EC] 81 mg PO DAILY 03/22/13 [History] Isosorbide Mononitrate [Imdur] 30 mg PO DAILY 03/22/13 [History] Multivitamin [Daily Multiple Vitamin] 1 tab PO DAILY 03/22/13 [History] Losartan [Cozaar] 100 mg PO BEDTIME 03/24/13 [History] Clopidogrel [Plavix] 75 mg PO DAILY 05/23/14 [History] Nitroglycerin [Nitrostat] 0.4 mg SL ASDIRECTED PRN 05/23/14 [History] atorvaSTATin [Lipitor] 40 mg PO BEDTIME 09/28/17 [History] Metoprolol Tartrate [Lopressor] 100 mg PO BID 03/04/17 [History] amLODIPine Besylate [Norvasc] 5 mg PO BEDTIME 03/04/17 [History] Amoxicillin 2,000 mg PO ASDIRECTED 05/18/17 [History] Potassium Citrate [Potassium Citrate ER] 15 meq PO BID 05/28/18 [History] Past Medical History HEENT History: Reports: Other (See Below) Other HEENT History: skesis Cardiovascular History: Reports: CAD, Heart Murmur, High Cholesterol, Stents Respiratory History: Reports: Intubation, Previous, Pneumonia, Recurrent, Sleep Apnea Gastrointestinal History: Reports: Cholelithiasis, Colon Polyp Genitourinary History: Reports: Renal Calculus Other Genitourinary History: LITHROTRIPSY Musculoskeletal History: Reports: Arthritis, Fracture, Other (See Below) Other Musculoskeletal History: R hip pain Endocrine/Metabolic History: Reports: Obesity/BMI 30+ Hematologic History: Reports: Blood Transfusion(s) - Infectious Disease History Infectious Disease History: Reports: Other (See Below) Other Infectious Disease History: R HIP STAFF INFECTION 2006 - Past Surgical History HEENT Surgical History: Reports: Cataract Surgery Cardiovascular Surgical History: Reports: Coronary Artery Stent Respiratory Surgical History: Reports: None GI Surgical History: Reports: Colonoscopy, Polypectomy Male Surgical History: Reports: Lithotripsy (ESWL), Vasectomy Endocrine Surgical History: Reports: None Musculoskeletal Surgical History: Reports: Arthroscopic Procedure, Hip Replacement, Shoulder Surgery, Other (See Below) Other Musculoskeletal Surgeries/Procedures:: finger surgery Dermatological Surgical History: Reports: None Social & Family History - Family History Family Medical History: Noncontributory Cardiac: Reports: Heart Failure, Heart Valve Replacement, [place] Musculoskeletal: Reports: Arthritis Endocrine/Metabolic: Reports: Diabetes, type II, Hypothyroidism - Tobacco Use Smoking Status *Q: Never Smoker - Caffeine Use Caffeine Use: Reports: Coffee - Recreational Drug Use Recreational Drug Use: No ED ROS GENERAL - Review of Systems Review Of Systems: See Below Constitutional: Reports: No Symptoms HEENT: Reports: No Symptoms Respiratory: Reports: Shortness of Breath. Denies: Cough Cardiovascular: Reports: Chest Pain, Dyspnea on Exertion. Denies: Edema, Orthopnea Endocrine: Reports: No Symptoms GI/Abdominal: Reports: Nausea. Denies: Black Stool, Bloody Stool, Constipation , Diarrhea, Vomiting : Reports: No Symptoms Musculoskeletal: Reports: No Symptoms Skin: Reports: No Symptoms Neurological: Reports: No Symptoms Psychiatric: Reports: No Symptoms ED EXAM, GENERAL - Physical Exam Exam: See Below Exam Limited By: No Limitations General Appearance: Alert, WD/WN, No Apparent Distress Eye Exam: Bilateral Eye: Normal Inspection Ears: Normal External Exam, Normal Canal, Hearing Grossly Normal Ear Exam: Bilateral Ear: Auricle Normal, Canal Normal Nose: Normal Inspection, No Blood Throat/Mouth: Normal Inspection, Normal Lips, Normal Oropharynx, Normal Voice, No Airway Compromise Head: Atraumatic, Normocephalic Neck: Normal Inspection, Supple Respiratory/Chest: No Respiratory Distress, Lungs Clear, Normal Breath Sounds Cardiovascular: Regular Rate, Rhythm, No Edema GI/Abdominal: Normal Bowel Sounds, Soft, Non-Tender, No Distention Back Exam: Normal Inspection Extremities: Normal Inspection, Normal Range of Motion, Non-Tender, No Pedal Edema Neurological: Alert, Oriented, Normal Cognition, No Motor/Sensory Deficits Psychiatric: Normal Affect, Normal Mood Skin Exam: Warm, Dry, Intact, Normal Color, No Rash EKG INTERPRETATION EKG Date: 05/27/18 Time: 23:55 Rhythm: NSR Rate (Beats/Min): 89 [place]: Normal P-Wave: Present QRS: Normal ST-T: Depressed QT: Normal Comparison: Change From Previous EKG EKG Interpretation Comments: ST depression ant leads V2-V6 new. Course - Vital Signs Text/Narrative:: Bipin Mo called @ 12:11am, Dr. Connors, cardiology, advises transfer now. Accepted by hospitalist Dr. Moss @ 1236 NTG 0.4 mg SL x 2, after 1st dose pain is less, after 2nd dose pain is gone. Last Recorded V/S: Last Vital Signs Temp 35.0 C L 05/28/18 00:33 Pulse 84 05/28/18 00:33 Resp 13 05/28/18 00:33 BP 134/76 05/28/18 00:33 Pulse Ox 97 05/28/18 00:33 - Orders/Labs/Meds Orders: Active Orders 24 hr Category Date Time Status Cardiac Monitoring [RC] .As Directed Care 05/27/18 23:58 Active EKG Documentation Completion [RC] ASDIRECTED Care 05/27/18 23:58 Active Chest 1V Frontal [CR] Stat Exams 05/28/18 00:17 Ordered BASIC METABOLIC PANEL,BMP [CHEM] Stat Lab 05/27/18 00:05 Received TROPONIN I [CHEM] Stat Lab 05/27/18 00:05 Received UA W/MICROSCOPIC [URIN] Stat Lab 05/27/18 23:59 Ordered Heparin Sodium/D5W [Heparin 25,000 Units in D5W 500 ML] Med 05/28/18 00:15 Active 25,000 units in 500 ml IV ASDIRECTED Nitroglycerin [Nitrostat] Med 05/28/18 00:02 Active 0.4 mg SL Q5M PRN Sodium Chloride 0.9% [Saline Flush] Med 05/27/18 23:58 Active 10 ml FLUSH ASDIRECTED PRN Saline Lock Insert [OM.PC] Routine Oth 05/27/18 23:58 Ordered EKG 12 Lead [EK] Routine Ther 05/27/18 23:58 Ordered Medication Orders Heparin Sodium/Dextrose (Heparin 25,000 Units In D5w 500 Ml) 25,000 units in 500 mls @ 18 mls/hr IV ASDIRECTED DAVID Last Admin: 05/28/18 00:20 Dose: 900 units/hr, 18 mls/hr Nitroglycerin (Nitrostat) 0.4 mg SL Q5M PRN PRN Reason: Chest Pain Last Admin: 05/28/18 00:17 Dose: 0.4 mg Admin: 05/28/18 00:02 Dose: 0.4 mg Sodium Chloride (Saline Flush) 10 ml FLUSH ASDIRECTED PRN PRN Reason: Keep Vein Open Last Admin: 05/28/18 00:12 Dose: 10 ml Labs: Laboratory Tests 05/27/18 Range/Units 00:05 WBC 5.0 (4.5-11.0) K/uL RBC 5.31 (4.30-5.90) M/uL Hgb 16.7 H (12.0-15.0) g/dL Hct 51.3 (40.0-54.0) % MCV 97 (80-98) fL MCH 32 H (27-31) pg MCHC 33 (32-36) % Plt Count 244 (150-400) K/uL Meds: Medications Generic Name Dose Route Start Last Admin Trade Name Freq PRN Reason Stop Dose Admin Heparin Sodium/Dextrose 25,000 units in 500 mls @ 18 mls/hr 05/28/18 00:15 00:20 Heparin 25,000 Units In D5w 500 Ml IV 900 units/hr ASDIRECTED DAVID 18 mls/hr Administration 900 UNITS/HR Nitroglycerin 0.4 mg 05/28/18 00:02 05/28/18 00:17 Nitrostat SL 0.4 mg Q5M PRN Administration Chest Pain Sodium Chloride 10 ml 05/27/18 23:58 05/28/18 00:12 Saline Flush FLUSH 10 ml ASDIRECTED PRN Administration Keep Vein Open Discontinued Medications Generic Name Dose Route Start Last Admin Trade Name Freq PRN Reason Stop Dose Admin Aspirin 324 mg 05/27/18 23:58 05/28/18 00:10 Aspirin PO 05/27/18 23:59 324 mg ONETIME ONE Administration Clopidogrel Bisulfate 525 mg 05/28/18 00:26 05/28/18 00:31 Plavix PO 05/28/18 00:27 525 mg ONETIME ONE Administration Heparin Sodium (Porcine) 5,000 units 05/28/18 00:03 05/28/18 00:13 Heparin Sodium IVPUSH 05/28/18 00:04 5,000 units ONETIME ONE Administration Nitroglycerin Confirm 05/28/18 00:02 05/28/18 00:10 Nitrostat Administered 05/28/18 00:03 Not Given Dose 0.4 mg .ROUTE .STK-MED ONE Ondansetron HCl 4 mg 05/28/18 00:02 05/28/18 00:11 Zofran Odt PO 05/28/18 00:03 4 mg ONETIME ONE Administration Ondansetron HCl Confirm 05/28/18 00:05 05/28/18 00:11 Zofran Odt Administered 05/28/18 00:06 Not Given Dose 4 mg .ROUTE .STK-MED ONE Departure - Departure Time of Disposition: 00:45 Disposition: DC/Tfer to Acute Hospital 02 Reason for Transfer *Q: Other Condition: Critical Clinical Impression: Acute coronary syndrome Referrals: Woodrow Lny MD [Primary Care Provider] - Forms: ED Department Discharge - My Orders Last 24 Hours: My Active Orders 05/27/18 00:05 BASIC METABOLIC PANEL,BMP [CHEM] Stat TROPONIN I [CHEM] Stat 05/27/18 23:58 Cardiac Monitoring [RC] .As Directed EKG Documentation Completion [RC] ASDIRECTED Sodium Chloride 0.9% [Saline Flush] 10 ml FLUSH ASDIRECTED PRN Saline Lock Insert [OM.PC] Routine EKG 12 Lead [EK] Routine 05/27/18 23:59 UA W/MICROSCOPIC [URIN] Stat 05/28/18 00:02 Nitroglycerin [Nitrostat] 0.4 mg SL Q5M PRN 05/28/18 00:15 Heparin Sodium/D5W [Heparin 25,000 Units in D5W 500 ML] 25,000 units in 500 ml IV ASDIRECTED 05/28/18 00:17 Chest 1V Frontal [CR] Stat - Assessment/Plan Last 24 Hours: My Active Orders 05/27/18 00:05 BASIC METABOLIC PANEL,BMP [CHEM] Stat TROPONIN I [CHEM] Stat 05/27/18 23:58 Cardiac Monitoring [RC] .As Directed EKG Documentation Completion [RC] ASDIRECTED Sodium Chloride 0.9% [Saline Flush] 10 ml FLUSH ASDIRECTED PRN Saline Lock Insert [OM.PC] Routine EKG 12 Lead [EK] Routine 05/27/18 23:59 UA W/MICROSCOPIC [URIN] Stat 05/28/18 00:02 Nitroglycerin [Nitrostat] 0.4 mg SL Q5M PRN 05/28/18 00:15 Heparin Sodium/D5W [Heparin 25,000 Units in D5W 500 ML] 25,000 units in 500 ml IV ASDIRECTED 05/28/18 00:17 Chest 1V Frontal [CR] Stat
[2018-05-28] MEDS ORDERED: Heparin Sodium/D5W 25,000 UNITS/500 ML BAG IV SCH (00:15)
[2018-05-28] MEDS ORDERED: Clopidogrel 75 MG Tab PO ONE (00:26)
[2018-05-28 00:34] VITALS: BP 134/76
[2018-05-28] MEDS ORDERED: Nitroglycerin 2% Oint 1 GM UD Packet TOP ONE (00:43)
--- NOTE | 2018-05-28 00:52 | CRLCR ---
INDICATION: CHEST PAIN TECHNIQUE: Chest 1 view. COMPARISON: 03/22/13 FINDINGS: Cardiovascular and mediastinum: Heart size and vasculature are normal in caliber and appearance. Mediastinum is within normal limits. Lungs and pleural space: Lungs are clear. No sign of infiltrate or mass. No sign of pleural effusion. No pneumothorax. Bones and soft tissues: No significant findings. IMPRESSION: Unremarkable chest. Dictated by: Romie Dobbs MD @ 05/28/2018 00:50:04 (Electronically Signed)
== END 2018-05-28 01:20 ==
LOC: JP.ED 23:46
DX: I24.9 Acute ischemic heart disease, unspecified (principal); E78.00 Pure hypercholesterolemia, unspecified; Z79.82 Long term (current) use of aspirin; Z79.899 Other long term (current) drug therapy; Z88.8 Allergy status to other drugs, medicaments and biological substances; Z88.5 Allergy status to narcotic agent
CPT/HCPCS: 36415; 71045; 80048; 81001; 84484; 85027; 93005; 96365; 99284; A9270; J1644; 93010; 99285

== ENCOUNTER 2018-06-30 16:47 | Emergency (ER) | payer MEDICARE, BC ==
[2018-06-30] MEDS ORDERED: Sodium Chloride 0.9% 10 ML Syringe FLUSH PRN (17:02)
[2018-06-30] MEDS ORDERED: Aspirin 81 MG Tab.Chew PO ONE (17:02)
--- NOTE | 2018-06-30 17:09 | EDM.PDOC ---
<OfficerElmer - Last Filed: 06/30/18 17:03> ED HPI GENERAL MEDICAL PROBLEM - General Chief Complaint: Chest Pain Stated Complaint: CHEST PAINS Time Seen by Provider: 06/30/18 17:02 Source of Information: Reports: Patient, Family, RN Notes Reviewed History Limitations: Reports: No Limitations - History of Present Illness INITIAL COMMENTS - FREE TEXT/NARRATIVE: 67-year-old gentleman presents emergency department today complaint chest pain, recently underwent coronary artery bypass grafting on 07 June he states for this particular event he was doing fine today. States he started having chest pain approximate 20 minutes prior to presentation to the emergency department did get diaphoretic no shortness of breath no nausea. He did have right shoulder pain however chest pain has completely resolved at this time Chest Pain Score (Numeric/FACES): 3 - Related Data Allergies Allergy/AdvReac Type Severity Reaction Status Date / Time meperidine HCl [From Demerol] Allergy Unknown Hypertensio Verified 06/30/18 16: 57 n clindamycin Allergy Rash Verified 06/30/18 17:18 hydroxychloroquine sulfate AdvReac Confusion Verified 06/30/18 16:57 [From Plaquenil] lisinopril AdvReac Cough Verified 06/30/18 16:57 Home Meds: Home Meds Aspirin [Adult Low Dose Aspirin EC] 81 mg PO DAILY 03/22/13 [History] Multivitamin [Daily Multiple Vitamin] 1 tab PO DAILY 03/22/13 [History] Nitroglycerin [Nitrostat] 0.4 mg SL ASDIRECTED PRN 05/23/14 [History] atorvaSTATin [Lipitor] 80 mg PO DAILY 11/20/16 [History] Ascorbic Acid [Vitamin C] 500 mg PO DAILY 06/30/18 [History] B12/Levomefolate Calcium/B-6 [Foltx Tablet] 1 each PO DAILY 06/30/18 [History] Cyclobenzaprine HCl 5 mg PO BID PRN 06/30/18 [History] Ferrous Sulfate 325 mg PO DAILY 06/30/18 [History] Furosemide 40 mg PO BID 06/30/18 [History] Metoprolol Tartrate 25 mg PO BID 06/30/18 [History] Pantoprazole Sodium 40 mg PO DAILY 06/30/18 [History] Potassium Chloride 40 meq PO BID 06/30/18 [History] traMADol HCl [Tramadol HCl] 50 mg PO Q6HR PRN 06/30/18 [History] Past Medical History HEENT History: Reports: Other (See Below) Other HEENT History: skesis Cardiovascular History: Reports: CAD, Heart Murmur, High Cholesterol, [place], Stents Respiratory History: Reports: Intubation, Previous, Pneumonia, Recurrent, Sleep Apnea Other Respiratory History: Cpap at home Gastrointestinal History: Reports: Cholelithiasis, Colon Polyp Genitourinary History: Reports: Renal Calculus Other Genitourinary History: LITHROTRIPSY Musculoskeletal History: Reports: Arthritis, Fracture, Other (See Below) Other Musculoskeletal History: R hip pain Endocrine/Metabolic History: Reports: Obesity/BMI 30+ Hematologic History: Reports: Blood Transfusion(s) - Infectious Disease History Infectious Disease History: Reports: Other (See Below) Other Infectious Disease History: R HIP STAFF INFECTION 2006 - Past Surgical History HEENT Surgical History: Reports: Cataract Surgery Cardiovascular Surgical History: Reports: Coronary Artery Bypass, Coronary Artery Stent Other Cardiovascular Surgeries/Procedures: CABG 06/07/2018 x4 Respiratory Surgical History: Reports: None GI Surgical History: Reports: Colonoscopy, Polypectomy Male Surgical History: Reports: Lithotripsy (ESWL), Vasectomy Endocrine Surgical History: Reports: None Musculoskeletal Surgical History: Reports: Arthroscopic Procedure, Hip Replacement, Shoulder Surgery, Other (See Below) Other Musculoskeletal Surgeries/Procedures:: finger surgery Dermatological Surgical History: Reports: None Social & Family History - Family History Family Medical History: Noncontributory Cardiac: Reports: Heart Failure, Heart Valve Replacement, SD Musculoskeletal: Reports: Arthritis Endocrine/Metabolic: Reports: Diabetes, type II, Hypothyroidism - Tobacco Use Smoking Status *Q: Never Smoker - Caffeine Use Caffeine Use: Reports: Coffee - Recreational Drug Use Recreational Drug Use: No ED ROS GENERAL - Review of Systems Review Of Systems: See Below Constitutional: Reports: Diaphoresis HEENT: Reports: No Symptoms Respiratory: Reports: No Symptoms Cardiovascular: Reports: Chest Pain GI/Abdominal: Reports: No Symptoms : Reports: No Symptoms Musculoskeletal: Reports: Shoulder Pain (Right side) ED EXAM, GENERAL - Physical Exam Exam: See Below Exam Limited By: No Limitations General Appearance: Alert, WD/WN, No Apparent Distress Respiratory/Chest: No Respiratory Distress, Lungs Clear, Normal Breath Sounds, No Accessory Muscle Use, Chest Non-Tender Cardiovascular: Regular Rate, Rhythm, No Murmur GI/Abdominal: Soft, Non-Tender Extremities: No Pedal Edema Course - Vital Signs Last Recorded V/S: Last Vital Signs Temp 96.9 F 06/30/18 16:51 Pulse 91 06/30/18 18:55 Resp 12 06/30/18 18:55 BP 130/80 06/30/18 18:55 Pulse Ox 100 06/30/18 18:55 - Orders/Labs/Meds Orders: Active Orders 24 hr Category Date Time Status Cardiac Monitoring [RC] .As Directed Care 06/30/18 17:02 Active EKG Documentation Completion [RC] ASDIRECTED Care 06/30/18 17:03 Active Peripheral IV Care [RC] . DIRECTED Care 06/30/18 17:03 Active Peripheral IV Insertion Adult [OM.PC] Stat Oth 06/30/18 17:02 Ordered Saline Lock Insert [OM.PC] Stat Oth 06/30/18 17:02 Ordered EKG 12 Lead [EK] Stat Ther 06/30/18 17:03 Ordered Labs: Laboratory Tests 06/30/18 06/30/18 06/30/18 Range/Units 17:02 17:02 21:00 WBC 6.6 (4.5-11.0) K/uL RBC 3.96 L (4.30-5.90) M/uL Hgb 12.0 D (12.0-15.0) g/dL Hct 39.3 L (40.0-54.0) % MCV 99 H (80-98) fL MCH 30 (27-31) pg MCHC 31 L (32-36) % Plt Count 371 (150-400) K/uL Neut % (Auto) 66 (36-66) % Lymph % (Auto) 21 L (24-44) % [place] % (Auto) 10 H (2-6) % Eos % (Auto) 3 (2-4) % Baso % (Auto) 1 (0-1) % Sodium 143 (140-148) mmol/L Potassium 4.4 (3.6-5.2) mmol/L Chloride 103 (100-108) mmol/L Carbon Dioxide 29 (21-32) mmol/L Anion Gap 11.0 (5.0-14.0) mmol/L BUN 20 H (7-18) mg/dL Creatinine 1.1 (0.8-1.3) mg/dL Est Cr Clr Drug Dosing 67.29 mL/min Estimated GFR (MDRD) > 60 (>60) Glucose 130 H (74-106) mg/dL Calcium 9.2 (8.5-10.1) mg/dL Total Bilirubin 0.4 D (0.2-1.0) mg/dL AST 35 D (15-37) U/L ALT 58 D (12-78) U/L Alkaline Phosphatase 147 H (46-116) U/L CK-MB (CK-2) 1.8 (0-3.6) mg/mL Troponin I < 0.017 0.022 (0.000-0.056) ng/mL Total Protein 7.1 (6.4-8.2) g/dL Albumin 3.3 L (3.4-5.0) g/dL Globulin 3.8 H (2.3-3.5) g/dL Albumin/Globulin Ratio 0.9 L (1.2-2.2) Meds: Medications Discontinued Medications Generic Name Dose Route Start Last Admin Trade Name Freq PRN Reason Stop Dose Admin Aspirin 324 mg 06/30/18 17:02 06/30/18 17:21 Aspirin PO 06/30/18 17:03 324 mg ONETIME ONE Administration Sodium Chloride 10 ml 06/30/18 17:02 06/30/18 17:41 Saline Flush FLUSH 10 ml ASDIRECTED PRN Administration Keep Vein Open Departure - Departure Disposition: Home, Self-Care 01 Clinical Impression: Atypical chest pain Instructions: Nonspecific Chest Pain Referrals: Woodrow Lyn MD [Primary Care Provider] - Forms: ED Department Discharge Care Plan Goals: Continue current medications and 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 Return anytime if worsening or concerns. Increase activity as tolerated. <Woodrow Valle D - Last Filed: 06/30/18 22:22> Course - Re-Assessments/Exams Free Text/Narrative Re-Assessment/Exam: 06/30/18 21:40 Patient evaluated and cared for by Officer, care turned to myself pending a second troponin. Over the next 3 hours the patient developed no further symptoms and his second troponin was also negative. He was discharged reassured with no medication changes. Departure - Departure Time of Disposition: 22:03
--- NOTE | 2018-06-30 18:04 | CRLCR ---
INDICATION: Chest pain TECHNIQUE: Chest radiograph 1 view COMPARISON: 05/28/2018 FINDINGS: Mediastinum: The mediastinum is normal in appearance. The heart silhouette is normal in size and morphology. The patient is status post coronary artery bypass surgery. Lung: Both lungs are unremarkable in appearance. No sign of pleural effusion seen. No pneumothorax is identified. Musculoskeletal: Unremarkable for age. IMPRESSION: 1. No acute cardiopulmonary disease is seen. Dictated by: Gold Fernandez MD @ 06/30/2018 18:01:57 (Electronically Signed)
[2018-06-30 19:16] VITALS: BP 130/80
== END 2018-06-30 22:03 | disposition home or self-care (01) ==
LOC: JP.ED 16:47
DX: R07.89 Other chest pain (principal); I25.2 Old myocardial infarction; E78.00 Pure hypercholesterolemia, unspecified; I25.10 Atherosclerotic heart disease of native coronary artery without angina pectoris; Z79.82 Long term (current) use of aspirin; Z79.899 Other long term (current) drug therapy; Z88.5 Allergy status to narcotic agent; Z88.8 Allergy status to other drugs, medicaments and biological substances
CPT/HCPCS: 36415; 71045; 80053; 82553; 84484; 85025; 93005; 99285; A9270

== ENCOUNTER 2020-03-22 07:13 | Day surgery (SDC) | payer MEDICARE, BC ==
[~2020-03-22 07:13] MED LIST: Midazolam 1 MG/ML 2 ML SDV ONE; Propofol 200 MG/20 ML SDV ONE; fentaNYL 100 MCG/2 ML SDV ONE
[2020-03-22] MEDS ORDERED: Dextrose 5%-Lactated Ringers 1,000 ML IV SCH (07:30)
[2020-03-22] MEDS ORDERED: Bupivacaine 0.5% 50 ML MDV ONE (07:44)
[2020-03-22] MEDS ORDERED: Lidocaine 1% with EPINEPHrine 1:100,000 50 ML MDV ONE (07:44)
[2020-03-22] MEDS ORDERED: Meropenem 500 MG in Sodium Chloride 0.9% 50 ML IV ONE (09:00)
[2020-03-22] MEDS ORDERED: Propofol 200 MG/20 ML SDV ONE (09:42)
[2020-03-22] MEDS ORDERED: Bacitracin Oint 1 GM U/D Packet ONE (10:04)
[2020-03-22 11:18] VITALS: BP 110/67; PULSE 65
--- NOTE | 2020-04-01 12:36 | OR ---
DATE OF PROCEDURE: 03/22/2020 SURGEON: Grayson Ludwig MD PREOPERATIVE DIAGNOSES: 1. History of colon polyps. 2. Large epidermoid cyst, left posterolateral neck. POSTOPERATIVE DIAGNOSES: 1. History of colon polyps with: a. Single small recurrent polyp in distal sigmoid colon. b. Uncomplicated left colonic diverticulosis. 2. Epidermoid cyst, left posterolateral neck extending into subfascial plane. OPERATIVE PROCEDURES: 1. Flexible colonoscopy with polypectomy. 2. Excision of epidermoid cyst, left posterolateral neck extending into subfascial plane ([id number]). ANESTHESIA: Local plus IV sedation. INDICATIONS FOR PROCEDURE: The patient presents for followup colonoscopy with history of previous colon polyps. The plan is to proceed with colonoscopy with biopsies and/or polypectomy as indicated. Potential risks including bleeding and perforation were discussed and the patient wishes to proceed. Additionally, has an increasingly symptomatic epidermoid cyst in the left posterolateral neck that has become fairly large, presently does not appear to be infected. The plan will be to proceed with concurrent excision of that. Potential risks of that procedure including bleeding, infection, local recurrence were reviewed, and the patient wishes to proceed. DETAILS OF PROCEDURE: The patient was taken to the operating room and initially placed in a left lateral decubitus position. IV sedation was administered after which the initial digital rectal exam was performed and was unremarkable. The colonoscope was then passed into the rectum with retroflexion revealing uncomplicated hemorrhoidal columns. The scope was then eventually passed to the cecum. The prep was quite good with only small scattered solid and liquid stool being present. The patient had some left colonic diverticulosis which was otherwise uncomplicated. A single small polyp was present at 20 cm from the dentate line. This was excised by means of the polypectomy snare and tissue retrieved for histologic evaluation. Good hemostasis at the polypectomy site was confirmed and the colonoscopic phase of the procedure then concluded. The patient was then turned into a right lateral decubitus position and the left posterolateral neck was prepped and draped. The area was anesthetized with 1% lidocaine mixed with Marcaine. An elliptical incision including the port of the epidermoid cyst was made and carried down through the skin and subcutaneous tissue. As one extended deeper into the edges of the cyst came as adherent to and involved the underlying fascia such that upon its excision the raw muscle was present below the level of the investing fascia. The cyst was removed otherwise intact. The cyst plus margin length was 4.0 cm and the incision length eventually 5.4 cm. The fascia was then approximated with a 3-0 Vicryl stitch, subcutaneous tissue with 2 layers of 4-0 Vicryl stitch, and the skin with a 5-0 Prolene running baseball-type stitch, and a dressing applied. The patient was taken to the recovery room in satisfactory condition. There were no evident complications. Grayson Ludwig MD /[id number]
== END 2020-03-22 11:30 | disposition home or self-care (01) ==
LOC: JP.SDS 07:13
PROVIDERS: ATTEND Surgery
DX: L72.0 Epidermal cyst (principal); Z12.11 Encounter for screening for malignant neoplasm of colon; K57.30 Diverticulosis of large intestine without perforation or abscess without bleeding; D12.5 Benign neoplasm of sigmoid colon; I10 Essential (primary) hypertension; G47.33 Obstructive sleep apnea (adult) (pediatric); E78.5 Hyperlipidemia, unspecified; I25.10 Atherosclerotic heart disease of native coronary artery without angina pectoris
CPT/HCPCS: 11624; 45385; 88304; 88305; J2185; J2250; J2704; J3010; J3490; J7121

== ENCOUNTER 2020-09-18 17:08 | Emergency (ER) | payer MEDICARE, BC ==
--- NOTE | 2020-09-18 19:05 | EDM.PDOC ---
<Woodrow Valle - Last Filed: 09/18/20 19:00> ED HPI GENERAL MEDICAL PROBLEM - General Chief Complaint: Chest Pain Stated Complaint: CHEST PAINS Time Seen by Provider: 09/18/20 17:40 Source of Information: Reports: Patient, Family History Limitations: Reports: No Limitations - History of Present Illness INITIAL COMMENTS - FREE TEXT/NARRATIVE: 69-year-old male with a history of coronary vascular disease, four-vessel bypass 4 years ago has been doing well, taking care of himself and has had no chest pain or significant symptoms. Today he was working in the warm air, went into rest and developed significant diaphoresis, chest tightness and some radiation up into the upper chest and shoulders. No shortness of breath, main other complaint is persistent diaphoresis. Denies nausea or vomiting. Onset: Sudden Duration: Hour(s): (Symptom onset was about 1 hour before coming in) Location: Reports: Other (Diaphoresis is generalized, chest pressure is central) Quality: Reports: Pressure Associated Symptoms: Reports: Chest Pain, Diaphoresis, Malaise. Denies: Confusion, Fever/Chills, Nausea/Vomiting, Shortness of Breath - Related Data Allergies Allergy/AdvReac Type Severity Reaction Status Date / Time meperidine HCl [From Demerol] Allergy Unknown Hypertensio Verified 09/18/20 17:37 n clindamycin Allergy Rash Verified 09/18/20 17:37 hydroxychloroquine sulfate AdvReac Confusion Verified 09/18/20 17:37 [From Plaquenil] lisinopril AdvReac Cough Verified 09/18/20 17:37 Home Meds: Home Meds Aspirin [Adult Low Dose Aspirin EC] 81 mg PO DAILY 03/22/13 [History] Multivitamin [Daily Multiple Vitamin] 1 tab PO DAILY 03/22/13 [History] Nitroglycerin [Nitrostat] 0.4 mg SL ASDIRECTED PRN 05/23/14 [History] atorvaSTATin [Lipitor] 80 mg PO DAILY 11/20/16 [History] Acetaminophen [Tylenol Extra Strength] 500 mg PO ASDIRECTED PRN 03/21/20 [History] Lidocaine 5% [Lidoderm 5%] 1 patch TOP DAILY 03/21/20 [History] carvediloL [Coreg] 12.5 mg PO BIDMEALS 03/21/20 [History] Cyclobenzaprine [Flexeril] 10 mg PO TID PRN 09/18/20 [History] Famotidine 40 mg PO BEDTIME 09/18/20 [History] dexAMETHasone [Dexamethasone] 2 mg PO QID 09/18/20 [History] hydroCHLOROthiazide [Hydrochlorothiazide] 12.5 mg PO DAILY 09/18/20 [History] traMADol [Ultram] 50 mg PO Q6H 09/18/20 [History] Past Medical History HEENT History: Reports: Other (See Below) Other HEENT History: skesis Cardiovascular History: Reports: Bypass, CAD, Heart Murmur, High Cholesterol, [place], Stents Respiratory History: Reports: Intubation, Previous, Pneumonia, Recurrent, Sleep Apnea Other Respiratory History: Cpap at home Gastrointestinal History: Reports: Cholelithiasis, Colon Polyp Genitourinary History: Reports: Renal Calculus Other Genitourinary History: LITHROTRIPSY Musculoskeletal History: Reports: Arthritis, Fracture, Other (See Below) Other Musculoskeletal History: R hip pain Endocrine/Metabolic History: Reports: Obesity/BMI 30+ Hematologic History: Reports: Blood Transfusion(s) Oncologic (Cancer) History: Reports: Prostate - Infectious Disease History Infectious Disease History: Reports: Chicken Pox, Other (See Below) Other Infectious Disease History: R HIP STAFF INFECTION 2006 - Past Surgical History HEENT Surgical History: Reports: Cataract Surgery Cardiovascular Surgical History: Reports: Coronary Artery Bypass, Coronary Artery Stent Other Cardiovascular Surgeries/Procedures: CABG 06/07/2018 x4 GI Surgical History: Reports: Cholecystectomy, Colonoscopy, Polypectomy Male Surgical History: Reports: Lithotripsy (ESWL), Vasectomy Musculoskeletal Surgical History: Reports: Arthroscopic Procedure, Hip Replacement, Shoulder Surgery, Other (See Below) Other Musculoskeletal Surgeries/Procedures:: finger surgery Social & Family History - Family History Family Medical History: No Pertinent Family History Cardiac: Reports: Heart Failure, Heart Valve Replacement, MT Musculoskeletal: Reports: Arthritis Endocrine/Metabolic: Reports: Diabetes, type II, Hypothyroidism - Tobacco Use Tobacco Use Status *Q: Never Tobacco User - Caffeine Use Caffeine Use: Reports: Coffee - Recreational Drug Use Recreational Drug Use: No ED ROS GENERAL - Review of Systems Review Of Systems: See Below Constitutional: Reports: Malaise. Denies: Fever, Chills HEENT: Denies: Vision Change Respiratory: Reports: Other (Central chest pressure). Denies: Shortness of Breath Cardiovascular: Reports: Chest Pain, Lightheadedness. Denies: Palpitations GI/Abdominal: Denies: Abdominal Pain, Nausea, Vomiting : Reports: No Symptoms Musculoskeletal: Reports: No Symptoms Skin: Reports: Diaphoresis (Profuse diaphoresis) Neurological: Reports: No Symptoms Psychiatric: Reports: No Symptoms ED EXAM, GENERAL - Physical Exam Exam: See Below Exam Limited By: No Limitations General Appearance: Alert, No Apparent Distress, Other (Much more comfortable after arriving to the emergency room) Eye Exam: Bilateral Eye: Normal Inspection Head: Atraumatic Neck: Supple, Non-Tender Respiratory/Chest: Lungs Clear, Other (Could not reproduce chest pain with palpation of the chest wall) Cardiovascular: Regular Rate, Rhythm. No: Extra Beats GI/Abdominal: Soft, Non-Tender Extremities: Normal Inspection. No: Pedal Edema Neurological: Alert, Oriented, No Motor/Sensory Deficits Psychiatric: Anxious (Initially somewhat anxious, calm down significantly a few minutes after arriving) Skin Exam: Diaphoretic (Diffuse diaphoresis) #1 Interpretation EKG Date: 09/18/20 Time: 19:00 Rhythm: NSR QRS: Normal ST-T: Normal EKG Interpretation Comments: Small Q waves in the inferior leads Course - Re-Assessments/Exams Free Text/Narrative Re-Assessment/Exam: 09/18/20 19:03 EKG looks nonacute, stable from previous and symptoms resolved without treatment. CBC CMP and troponin were obtained, troponin returned 0.042 within normal limits and the rest of his labs were reassuring. He continued to have off-and-on diaphoresis and a slight fullness in his throat but no chest pressure or shortness of breath. Care was turned over to Dr. Berry pending a second troponin at 8 p.m. 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 It may be recommended that you undergo further cardiac testing Based on your labs today it appears that you are mildly dehydrated is recommended then went when you were working outside in the heat that you ensure you are drinking plenty of water and/or sports drinks of choice (will be recommended to avoid high sugar sports drinks but to use the low sugar low calorie 1 secondary to your noted elevated glucose/blood sugar) If you should have any kind of recurrence of pain discomfort sweating episodes shortness of breath difficulty breathing or concerns otherwise please return to the emergency room immediately for further evaluation Sepsis Event Note (ED) - Evaluation Sepsis Screening Result: No Definite Risk <Keara Berry - Last Filed: 09/18/20 21:02> Course - Vital Signs Text/Narrative:: 1899--report received from Dr Barba, ER at change of shift/transfer of care. in room to introduce self to patient/family. he states no CP/discomfort, has sensation of something in his throat as previously described that is subsiding in nature/almost gone. reports intermittent episodes of diaphoresis since being in the ER. Aware that plan of care is to repeat troponin at 1999, further determination in care once that returns. no further questions/concerns expressed at this time 2056--repeat troponin has returned continues to be negative and actually has decreased just mildly in nature initial troponin0.042 repeat 0.039. This time with no continued pain or discomfort as well as improving sensation in his throat will have patient follow-up with his primary for further cardiac evaluation as it is likely he will need a stress test and other cardiac testing as indicated by his batter mixer helper or primary care provider was discussed with patient these results and recommendations to include return to the ER should he have any repeat symptoms or symptoms of increasing concern patient verbalized understanding agreement with plan of care ready for discharge Last Recorded V/S: Last Vital Signs Temp 95.9 F L 09/18/20 17:35 Pulse 60 09/18/20 20:56 Resp 12 09/18/20 20:56 BP 174/92 H 09/18/20 20:56 Pulse Ox 97 09/18/20 20:56 - Orders/Labs/Meds Orders: Active Orders 24 hr Category Date Time Status EKG Documentation Completion [RC] ASDIRECTED Care 09/18/20 17:26 Active EKG 12 Lead [EK] Routine Ther 09/18/20 17:26 Ordered Labs: Laboratory Tests 09/18/20 09/18/20 09/18/20 Range/Units 17:25 17:25 20:00 WBC 11.0 (4.5-11.0) K/uL RBC 5.76 (4.30-5.90) M/uL Hgb 18.0 H D (12.0-15.0) g/dL Hct 52.9 (40.0-54.0) % MCV 92 (80-98) fL MCH 31 (27-31) pg MCHC 34 (32-36) % Plt Count 238 (150-400) K/uL Neut % (Auto) 80.6 H (36-66) % Lymph % (Auto) 9.3 L (24-44) % [place] % (Auto) 9.5 H (2-6) % Eos % (Auto) 0.1 L (2-4) % Baso % (Auto) 0.5 (0-1) % Sodium 141 (140-148) mmol/L Potassium 3.5 L (3.6-5.2) mmol/L Chloride 101 (100-108) mmol/L Carbon Dioxide 31 (21-32) mmol/L Anion Gap 12.5 (5.0-14.0) mmol/L BUN 28 H (7-18) mg/dL Creatinine 1.3 (0.8-1.3) mg/dL Est Cr Clr Drug Dosing 55.37 mL/min Estimated GFR (MDRD) 55 L (>60) Glucose 203 H (74-106) mg/dL Calcium 8.4 L (8.5-10.1) mg/dL Total Bilirubin 1.1 H D (0.2-1.0) mg/dL AST 38 H (15-37) U/L ALT 92 H (12-78) U/L Alkaline Phosphatase 129 H (46-116) U/L Troponin I 0.042 0.039 (0.000-0.056) ng/mL Total Protein 6.4 (6.4-8.2) g/dL Albumin 3.6 (3.4-5.0) g/dL Globulin 2.8 (2.3-3.5) g/dL Albumin/Globulin Ratio 1.3 (1.2-2.2) Departure - Departure Time of Disposition: 20:59 - Discharge Information *PRESCRIPTION DRUG MONITORING PROGRAM REVIEWED*: Not Applicable *COPY OF PRESCRIPTION DRUG MONITORING REPORT IN PATIENT AVINASH: Not Applicable Sepsis Event Note (ED) - Focused Exam Vital Signs: Vital Signs Temp Pulse Resp BP Pulse Ox 09/18/20 20:56 60 12 174/92 H 97 09/18/20 20:16 61 12 168/90 H 96 09/18/20 19:41 59 L 12 167/90 H 95 09/18/20 18:50 58 L 11 L 153/84 H 95 09/18/20 18:14 68 13 175/93 H 97 09/18/20 17:35 95.9 F L 83 11 L 186/97 H 97
[2020-09-18 20:56] VITALS: BP 174/92; PULSE 60
== END 2020-09-18 21:23 | disposition home or self-care (01) ==
LOC: JP.ED 17:08
DX: E86.0 Dehydration (principal); E87.6 Hypokalemia; R74.8 Abnormal levels of other serum enzymes; I10 Essential (primary) hypertension; R07.89 Other chest pain; E66.9 Obesity, unspecified; Z68.32 Body mass index [BMI] 32.0-32.9, adult; I25.10 Atherosclerotic heart disease of native coronary artery without angina pectoris; E78.00 Pure hypercholesterolemia, unspecified; I25.2 Old myocardial infarction; M19.90 Unspecified osteoarthritis, unspecified site; Z88.8 Allergy status to other drugs, medicaments and biological substances; Z88.1 Allergy status to other antibiotic agents; Z79.82 Long term (current) use of aspirin; Z79.899 Other long term (current) drug therapy
CPT/HCPCS: 36415; 80053; 84484; 85025; 93005; 99285-25

== ENCOUNTER 2021-01-01 06:22 | Day surgery (SDC) | payer MEDICARE, BC ==
[2021-01-01] MEDS ORDERED: Sodium Chloride 0.9% 1,000 ML IV SCH (07:00)
[2021-01-01] MEDS ORDERED: Midazolam 1 MG/ML 2 ML SDV ONE (07:28)
[2021-01-01] MEDS ORDERED: Propofol 200 MG/20 ML SDV ONE (07:28)
[2021-01-01] MEDS ORDERED: fentaNYL 100 MCG/2 ML SDV ONE (07:28)
[2021-01-01 08:51] VITALS: BP 102/55; PULSE 65
--- NOTE | 2021-01-01 14:22 | OR ---
DATE OF PROCEDURE: 01/01/2021 SURGEON: Pernell Dial MD PROCEDURE: Colonoscopy. FINDINGS: 1. Diverticulosis, mild. 2. No etiology of the GI bleeding, although diverticulosis most likely culprit; however, there is no active bleeding at the time of colonoscopy. COMPLICATIONS: None. REST ROOM MATRON: None. ANESTHESIA: MAC. PREOPERATIVE DIAGNOSIS: Gastrointestinal bleeding. POSTOPERATIVE DIAGNOSIS: Gastrointestinal bleeding. RISKS: Risks, benefits, alternatives, and limitations including, but not limited to infection, bleeding, perforation, false positives, and false negatives were all explained to the patient, and they wished to proceed. PROCEDURE IN DETAIL: The patient was placed in the left lateral decubitus position. Digital rectal exam was performed without abnormality. Scope was introduced and advanced atraumatically to the ileocecal valve. A photo was taken. The scope was brought back to the ascending, transverse, descending colon, and retroflexed. No evidence of old or new blood. No masses. No polyps. Diverticulosis described as mild into the sigmoid colon without evidence of diverticulitis or bleeding. Greater than 8 minutes was spent removing the scope. The prep was acceptable. Approximately 90% of the luminal surface could be seen. The patient tolerated the procedure well. Pernell Dial MD /[id number]
== END 2021-01-01 09:15 | disposition home or self-care (01) ==
LOC: JP.SDS 06:22
PROVIDERS: ATTEND Surgery
DX: K57.30 Diverticulosis of large intestine without perforation or abscess without bleeding (principal); G47.33 Obstructive sleep apnea (adult) (pediatric); I10 Essential (primary) hypertension; E66.9 Obesity, unspecified
CPT/HCPCS: 45378; J2250; J2704; J3010; J7030

== ENCOUNTER 2022-08-27 15:26 | Emergency (ER) | payer MEDICARE, BC ==
[2022-08-27] MEDS ORDERED: Aspirin 81 MG Tab.Chew PO ONE (15:35)
[2022-08-27] MEDS ORDERED: Sodium Chloride 0.9% 10 ML Syringe FLUSH PRN (15:35)
[2022-08-27 15:56] LABS: BASOPHILS ABSOLUTE AUTO 0.06 K/uL (0.00-0.10); BASOPHILS PERCENT AUTO 0.9 % (0.1-1.3); EOSINOPHILS ABSOLUTE AUTO 0.26 K/uL (0.00-0.40); EOSINOPHILS PERCENT AUTO 3.9 % (0.0-5.4); HEMATOCRIT 46.5 % (38.4-49.7); HEMOGLOBIN 16.2 g/dL (12.9-16.9); IMMATURE GRAN ABSOLUTE AUTO 0.02 K/uL (0.00-0.23); IMMATURE GRAN PERCENT AUTO 0.3 % (0.0-0.7); LYMPHOCYTES ABSOLUTE AUTO 1.53 K/uL (0.8-3.3); LYMPHOCYTES PERCENT AUTO 22.9 % (11.4-47.7); MEAN CORPUSCULAR HEMOGLOBIN 33.1 pg (31.6-35.5); MEAN CORPUSCULAR HGB CONC 34.8 g/dL (31.6-35.5); MEAN CORPUSCULAR VOLUME 95.1 fL (81.4-99.0); MONOCYTES ABSOLUTE AUTO 0.74 K/uL (0.20-0.90); MONOCYTES PERCENT AUTO 11.1 % (3.3-12.6); NEUTROPHILS ABSOLUTE AUTO 4.06 K/uL (1.0-7.6); NEUTROPHILS PERCENT AUTO 60.9 % (40.0-78.1); PLATELET COUNT,PLT 207 K/uL (130-375); RED BLOOD CELL COUNT 4.89 M/uL (4.14-5.76); WHITE BLOOD CELL COUNT,WBC 6.7 K/uL (3.2-11.0)
[2022-08-27] MEDS ORDERED: Nitroglycerin 0.4 MG Tab.SL SL ONE (16:04)
[2022-08-27 16:13] LABS: INR 1.1; PROTHROMBIN TIME 10.8 sec (9.2-10.6)
[2022-08-27 16:19] LABS: ANION GAP 5.7 mmol/L (5.0-14.0); BLOOD UREA NITROGEN,BUN 17 mg/dL (7-18); CALCIUM 8.6 mg/dL (8.5-10.1); CARBON DIOXIDE,CO2 30 mmol/L (21-32); CHLORIDE,CL 104 mmol/L (100-108); CREATININE 0.9 mg/dL (0.8-1.3); ESTIMATED GFR 91 mL/min (>60); GLUCOSE RANDOM 143 mg/dL (74-106); POTASSIUM,K 4.1 mmol/L (3.6-5.2); SODIUM,NA 140 mmol/L (140-148); TROPONIN I HIGH SENSITIVITY 22.1 pg/mL (<=60.3)
[2022-08-27 19:43] VITALS: BP 146/78; PULSE 77
== END 2022-08-27 19:14 | disposition home or self-care (01) ==
LOC: JP.ED 15:26
DX: R07.89 Other chest pain (principal); I10 Essential (primary) hypertension; G47.33 Obstructive sleep apnea (adult) (pediatric); E66.9 Obesity, unspecified; I25.10 Atherosclerotic heart disease of native coronary artery without angina pectoris; I25.2 Old myocardial infarction; M19.90 Unspecified osteoarthritis, unspecified site; E78.00 Pure hypercholesterolemia, unspecified; Z88.8 Allergy status to other drugs, medicaments and biological substances; Z88.1 Allergy status to other antibiotic agents; Z79.82 Long term (current) use of aspirin; Z79.899 Other long term (current) drug therapy; Z79.84 Long term (current) use of oral hypoglycemic drugs; Z95.1 Presence of aortocoronary bypass graft
CPT/HCPCS: 36415; 71045; 80048; 84484; 85025; 85610; 85730; 93005; 99285; A9270; J3490

== ENCOUNTER 2023-02-08 02:06 | Emergency (ER) | payer MEDICARE, BC ==
[2023-02-08] MEDS ORDERED: HYDROmorphone 1 MG/ML Syringe IM ONE (02:30)
[2023-02-08 04:41] LABS: BASOPHILS ABSOLUTE AUTO 0.08 K/uL (0.00-0.10); EOSINOPHILS ABSOLUTE AUTO 0.59 K/uL (0.00-0.40); HEMATOCRIT 47.8 % (38.4-49.7); HEMOGLOBIN 16.8 g/dL (12.9-16.9); IMMATURE GRAN PERCENT AUTO 0.2 % (0.0-0.7); LYMPHOCYTES ABSOLUTE AUTO 1.87 K/uL (0.8-3.3); LYMPHOCYTES PERCENT AUTO 22.2 % (11.4-47.7); MEAN CORPUSCULAR HGB CONC 35.1 g/dL (31.6-35.5); MEAN CORPUSCULAR VOLUME 93.9 fL (81.4-99.0); MONOCYTES ABSOLUTE AUTO 0.67 K/uL (0.20-0.90); NEUTROPHILS ABSOLUTE AUTO 5.18 K/uL (1.0-7.6); NEUTROPHILS PERCENT AUTO 61.6 % (40.0-78.1); PLATELET COUNT,PLT 207 K/uL (130-375); RED BLOOD CELL COUNT 5.09 M/uL (4.14-5.76); WHITE BLOOD CELL COUNT,WBC 8.4 K/uL (3.2-11.0)
[2023-02-08 04:43] LABS: IMMATURE GRAN ABSOLUTE AUTO 0.02 K/uL (0.00-0.23)
[2023-02-08 04:58] LABS: ANION GAP 9.8 mmol/L (5.0-14.0); CALCIUM 8.6 mg/dL (8.5-10.1); EST CRCL DRUG DOSING (CG) 69.11 mL/min; POTASSIUM,K 3.9 mmol/L (3.6-5.2)
[2023-02-08] MEDS ORDERED: HYDROmorphone 0.5 MG/0.5 ML Syringe IM ONE (05:55)
[2023-02-08 07:29] VITALS: BP 153/93; PULSE 77
== END 2023-02-08 08:16 | disposition home or self-care (01) ==
LOC: JP.ED 02:06
DX: M25.551 Pain in right hip (principal); M54.31 Sciatica, right side; M62.838 Other muscle spasm; I10 Essential (primary) hypertension; I25.2 Old myocardial infarction; I25.10 Atherosclerotic heart disease of native coronary artery without angina pectoris; E78.00 Pure hypercholesterolemia, unspecified; E66.9 Obesity, unspecified; Z68.32 Body mass index [BMI] 32.0-32.9, adult; Z96.641 Presence of right artificial hip joint; Z90.49 Acquired absence of other specified parts of digestive tract; Z88.8 Allergy status to other drugs, medicaments and biological substances; Z79.82 Long term (current) use of aspirin; Z79.899 Other long term (current) drug therapy
CPT/HCPCS: 36415; 73502; 73700; 80048; 83605; 84145; 85025; 86140; 96372; 99284; J1170